=== PATIENT | female | born 1955 ===

== ENCOUNTER 2019-07-26 09:15 | Inpatient (IN) | payer OTHER ==
[~2019-07-26] VITALS: Ht 162.6 cm; Wt 65.8 kg
[2019-07-26] MEDS ORDERED: PAXIL40 MG (12:23)
[2019-07-26] MEDS ORDERED: BUTALB-ACETAMI1 EAC1 (12:26)
[2019-08-03] MEDS ORDERED: DUI500 PO (07:23)
[2019-08-03] MEDS ORDERED: ELIQUIS2.5 MG PO (07:23)
[2019-08-03] MEDS ORDERED: PERCOCET 5-3251 EACH PO (07:23)
== END 2019-08-03 16:30 | DRG 470 ==
LOC: O/R 09:15 → SURH 07-31 09:15
PROVIDERS: ADMIT Orthopaedic Surgery
PROC: 0MNP0ZZ Release Left Knee Bursa and Ligament, Open Approach (ICD-10-PCS; 2019-07-31)
PROC: 0SRD0J9 Replacement of Left Knee Joint with Synthetic Substitute, Cemented, Open Approach (ICD-10-PCS; principal; 2019-07-31 10:30)
DX: M17.12 Unilateral primary osteoarthritis, left knee (principal); D62 Acute posthemorrhagic anemia; M81.0 Age-related osteoporosis without current pathological fracture; M22.12 Recurrent subluxation of patella, left knee; Z96.652 Presence of left artificial knee joint